=== PATIENT | male | born 1935 | race Caucasian/White ===

== ENCOUNTER 2016-09-20 12:16 | Inpatient (IN) | payer MEDICARE, OTHER ==
[2016-09-19] MEDS: SODIUM CHLORIDE 0.9% 1,000 ML IV SCH (17:16)
[~2016-09-20] VITALS: Ht 172.7 cm; Wt 75.7 kg
[~2016-09-20 12:16] MED LIST: ACET325T14 PO; ALPR0.25 PO; CEFD300C2 PO; DOCU-30 PO; FINA5TAB4 PO; MELA1TAB22 PO; NIFE30TA15 PO
[2016-09-20] MEDS ORDERED: TAMS0.4C2 PO (13:17)
[2016-09-20] MEDS ORDERED: [UNRECOGNIZED DRUG - CODE] PO (13:17)
[2016-09-20] MEDS ORDERED: DIVA250T4 PO (13:17)
[2016-09-20] MEDS ORDERED: MELA3TAB PO (13:17)
[2016-09-20 13:20] LABS: HEMOGLOBIN 14.1 g/dL (13.7-18.0)
[2016-09-20] MEDS ORDERED: SODIUM CHLORIDE FLUSH 10ML SYR IVF ONE (13:30)
[2016-09-20] MEDS ORDERED: SODIUM CHLORIDE 0.9% 1,000ML IVBOLUS ONE ×4 (13:30→19:30)
[2016-09-20 13:34] LABS: ASPARTATE AMINO TRANSFERASE 37 U/L (15-37); BLOOD UREA NITROGEN 42 mg/dL (7-18)
[2016-09-20] MEDS ORDERED: DEXTROSE 50%, 50ML SYRINGE ONE (15:23)
[2016-09-20] MEDS ORDERED: DEXTROSE 50%, 50ML SYRINGE IVPush ONE (15:30)
[2016-09-20] MEDS ORDERED: SODIUM CHLORIDE FLUSH 10ML SYR IVF PRN (16:00)
[2016-09-20] MEDS ORDERED: NOREPINEPHRINE 4 MG in SODIUM CHLORIDE 0.9% 246 ML IV PRN (17:30)
[2016-09-20] MEDS ORDERED: ATROPINE SYRINGE 0.1 MG/ML, 10ML IVPush PRN (17:30)
[2016-09-20] MEDS ORDERED: ONDANSETRON 2MG/ML, 2ML IVP PRN (17:30)
[2016-09-20] MEDS ORDERED: ACETAMINOPHEN 325 MG TABLET PO PRN (17:30)
[2016-09-20] MEDS ORDERED: DOPAMINE/D5W PMX 250 ML ONE (17:31)
[2016-09-20] MEDS: DOPAMINE/D5W PMX 250 ML IV PRN ×2 (17:52→23:59)
[2016-09-20 18:06] LABS: IS PT STATUS REG ER OR PRE ER? YES
[2016-09-20 18:45] VITALS: BP 93/58
[2016-09-20] MEDS ORDERED: SODIUM CHLORIDE 0.9% 1,000 ML IV SCH (19:30)
[2016-09-20] MEDS: SODIUM CHLORIDE 0.9% 1,000 ML IV SCH ×2 (19:30→23:57)
[2016-09-20] MEDS: ENOXAPARIN 40 MG/0.4 ML SQ SCH (21:09)
[2016-09-20 21:30] LABS: DIFF TOTAL CELLS COUNTED 100 CELL DIFF
[2016-09-20 21:35] LABS: VERIFY COUNTS? YES
[2016-09-20 21:36] LABS: ANISOCYTOSIS 1+; POIKILOCYTOSIS 1+
[2016-09-20 21:38] LABS: LARGE PLATELETS 1+; MONOS WITH VACUOLES 1+
[2016-09-20] MEDS: CEFTRIAXONE PMX 1GM/50ML 50 ML IV SCH (22:23)
[2016-09-20 23:57] LABS: IS PT STATUS REG ER OR PRE ER? NO
[2016-09-21] MEDS: SODIUM CHLORIDE 0.9% 1,000 ML IV SCH ×3 (02:10→08:50)
[2016-09-21 04:33] LABS: HEMOGLOBIN 12.4 g/dL (13.7-18.0)
[2016-09-21 04:40] VITALS: BP 170/101
[2016-09-21 04:46] LABS: ASPARTATE AMINO TRANSFERASE 36 U/L (15-37); BLOOD UREA NITROGEN 40 mg/dL (7-18)
[2016-09-21] MEDS ORDERED: ENALAPRILAT 1.25 MG/ML, 2ML IV ONE (05:30)
[2016-09-21 05:51] LABS: IS PT STATUS REG ER OR PRE ER? NO
[2016-09-21] MEDS ORDERED: hydrALAzine 20 MG/ML, 1ML ONE (06:00)
[2016-09-21] MEDS: PANTOPRAZOLE 40 MG IV IVP SCH (07:36)
[2016-09-21] MEDS ORDERED: VALPROATE SODIUM 250 MG/5 ML ORAL SOLN PO/NG SCH (09:24)
[2016-09-21] MEDS ORDERED: VANCOMYCIN PER PHARMACY MC PRN (09:30)
[2016-09-21] MEDS ORDERED: PHARMACOKINETIC MONITORING MC PRN (09:30)
[2016-09-21] MEDS: LEVOTHYROXINE 100 MCG INJ IVPush SCH (10:00)
[2016-09-21] MEDS: CEFTRIAXONE PMX 1GM/50ML 50 ML IV SCH ×2 (10:00→20:36)
[2016-09-21] MEDS: VANCOMYCIN 1,600 MG in SODIUM CHLORIDE 0.9% 250 ML IV SCH (11:17)
[2016-09-21] MEDS: DOPAMINE/D5W PMX 250 ML IV PRN ×2 (12:17→21:01)
[2016-09-21] MEDS: D5%-0.45% NACL 1,000 ML IV SCH (12:25)
[2016-09-21] MEDS: VALPROATE SODIUM 250 MG in DEXTROSE 5% 100 ML IV SCH (20:15)
[2016-09-21] MEDS: ENOXAPARIN 40 MG/0.4 ML SQ SCH (20:36)
[2016-09-22] MEDS: D5%-0.45% NACL 1,000 ML IV SCH ×2 (00:22→14:32)
[2016-09-22 04:00] VITALS: BP 111/80
[2016-09-22 04:01] LABS: HEMOGLOBIN 12.7 g/dL (13.7-18.0)
[2016-09-22 04:12] LABS: BLOOD UREA NITROGEN 35 mg/dL (7-18); IS PT STATUS REG ER OR PRE ER? NO
[2016-09-22 04:17] LABS: ASPARTATE AMINO TRANSFERASE 34 U/L (15-37)
[2016-09-22] MEDS: VALPROATE SODIUM 250 MG in DEXTROSE 5% 100 ML IV SCH ×2 (09:10→21:36)
[2016-09-22] MEDS: PANTOPRAZOLE 40 MG IV IVP SCH (09:10)
[2016-09-22] MEDS: VANCOMYCIN 1,600 MG in SODIUM CHLORIDE 0.9% 250 ML IV SCH (09:11)
[2016-09-22] MEDS: LEVOTHYROXINE 100 MCG INJ IVPush SCH (09:11)
[2016-09-22] MEDS: CEFTRIAXONE PMX 1GM/50ML 50 ML IV SCH ×2 (10:38→22:07)
[2016-09-22] MEDS: hydrALAzine 20 MG/ML, 1ML IV PRN (14:29)
[2016-09-22] MEDS: ENOXAPARIN 40 MG/0.4 ML SQ SCH (21:36)
[2016-09-23] MEDS: D5%-0.45% NACL 1,000 ML IV SCH (04:15)
[2016-09-23 04:52] LABS: BLOOD UREA NITROGEN 27 mg/dL (7-18)
[2016-09-23 04:55] LABS: ASPARTATE AMINO TRANSFERASE 29 U/L (15-37)
[2016-09-23 05:52] VITALS: BP 155/96
[2016-09-23] MEDS: LEVOTHYROXINE 100 MCG INJ IVPush SCH (06:22)
[2016-09-23] MEDS: PANTOPRAZOLE 40 MG IV IVP SCH (07:43)
[2016-09-23] MEDS: hydrALAzine 20 MG/ML, 1ML IV PRN (09:03)
[2016-09-23] MEDS: CEFTRIAXONE PMX 1GM/50ML 50 ML IV SCH ×2 (10:21→22:50)
[2016-09-23] MEDS: VANCOMYCIN 1,600 MG in SODIUM CHLORIDE 0.9% 250 ML IV SCH (10:21)
[2016-09-23] MEDS: VALPROATE SODIUM 250 MG in DEXTROSE 5% 100 ML IV SCH ×2 (10:21→21:35)
[2016-09-23 12:30] VITALS: BP 156/92
[2016-09-23] MEDS: ENOXAPARIN 40 MG/0.4 ML SQ SCH (21:35)
[2016-09-23 22:09] VITALS: BP 159/93
[2016-09-24 02:37] VITALS: BP 131/84
[2016-09-24] MEDS: D5%-0.45% NACL 1,000 ML IV SCH (03:22)
[2016-09-24 05:24] LABS: BLOOD UREA NITROGEN 24 mg/dL (7-18)
[2016-09-24 05:29] LABS: ASPARTATE AMINO TRANSFERASE 18 U/L (15-37)
[2016-09-24 05:32] LABS: IS PT STATUS REG ER OR PRE ER? NO
[2016-09-24 05:42] LABS: HEMOGLOBIN 12.4 g/dL (13.7-18.0)
[2016-09-24] MEDS: LEVOTHYROXINE 100 MCG INJ IVPush SCH (05:48)
[2016-09-24 07:51] VITALS: BP 159/90
[2016-09-24] MEDS: PANTOPRAZOLE 40 MG IV IVP SCH (09:31)
[2016-09-24] MEDS: VALPROATE SODIUM 250 MG in DEXTROSE 5% 100 ML IV SCH ×2 (09:31→21:57)
[2016-09-24] MEDS: CEFTRIAXONE PMX 1GM/50ML 50 ML IV SCH ×2 (10:48→23:30)
[2016-09-24] MEDS: VANCOMYCIN 1,600 MG in SODIUM CHLORIDE 0.9% 250 ML IV SCH (11:28)
[2016-09-24] MEDS: POTASSIUM CHLORIDE 10 MEQ in DEXTROSE 5% 1,000 ML IV SCH (13:41)
[2016-09-24] MEDS ORDERED: BENZOCAINE 20% SPRAY 0.5ML ONE (14:23)
[2016-09-24] MEDS ORDERED: LIDOCAINE GEL 2%, 5ML ONE (14:24)
[2016-09-24 16:12] VITALS: BP 180/98
[2016-09-24] MEDS: hydrALAzine 20 MG/ML, 1ML IV PRN (17:07)
[2016-09-24 20:00] VITALS: BP 125/83
[2016-09-24] MEDS: ENOXAPARIN 40 MG/0.4 ML SQ SCH (21:57)
[2016-09-25 01:58] VITALS: BP 145/92
[2016-09-25 05:28] LABS: BLOOD UREA NITROGEN 24 mg/dL (7-18)
[2016-09-25] MEDS: POTASSIUM CHLORIDE 10 MEQ in DEXTROSE 5% 1,000 ML IV SCH (05:37)
[2016-09-25] MEDS: LEVOTHYROXINE 100 MCG INJ IVPush SCH (05:49)
[2016-09-25 07:09] VITALS: BP 142/102
[2016-09-25] MEDS: PANTOPRAZOLE 40 MG IV IVP SCH (08:31)
[2016-09-25] MEDS: VALPROATE SODIUM 250 MG in DEXTROSE 5% 100 ML IV SCH ×2 (08:31→21:21)
[2016-09-25] MEDS: CEFTRIAXONE PMX 1GM/50ML 50 ML IV SCH (10:00)
[2016-09-25] MEDS: VANCOMYCIN 1,600 MG in SODIUM CHLORIDE 0.9% 250 ML IV SCH (10:22)
[2016-09-25] MEDS ORDERED: PVN PER PHARMACY IV SCH (11:30)
[2016-09-25] MEDS ORDERED: POTASSIUM CHLORIDE 40 MEQ in SODIUM CHLORIDE 0.9% 500 ML IV SCH (13:00)
[2016-09-25 14:00] VITALS: BP 170/95
[2016-09-25] MEDS ORDERED: ACETAMINOPHEN 650 MG SUPP PR PRN (14:30)
[2016-09-25] MEDS: FILTER, DISP 1.2 MICRON FOR TPN/PVN IV PRN (16:58)
[2016-09-25] MEDS: FUROSEMIDE 40 MG/4 ML IV SCH (16:58)
[2016-09-25] MEDS ORDERED: DEXTROSE 70% IV SCH (17:00)
[2016-09-25] MEDS ORDERED: FAT EMULSIONS IV SCH (17:00)
[2016-09-25] MEDS ORDERED: DEXTROSE 50%, 50ML SYRINGE IVPush PRN (17:00)
[2016-09-25] MEDS ORDERED: [UNRECOGNIZED DRUG - OTHER] IV SCH (17:00)
[2016-09-25] MEDS ORDERED: AMINO ACID 10% IV SCH (17:00)
[2016-09-25] MEDS ORDERED: DEXTROSE 10% 500 ML IV PRN (17:00)
[2016-09-25] MEDS ORDERED: TPN PER PHARMACY MC PRN (17:00)
[2016-09-25 22:00] VITALS: BP 161/91
[2016-09-25] MEDS: INSULIN REGULAR LOW DOSE Q6H X 48HRS SQ-INSULIN SCH (23:00)
[2016-09-26] MEDS: CEFTRIAXONE PMX 1GM/50ML 50 ML IV SCH ×3 (00:25→23:33)
[2016-09-26 02:15] VITALS: BP 168/90
[2016-09-26] MEDS: INSULIN REGULAR LOW DOSE Q6H X 48HRS SQ-INSULIN SCH ×4 (05:00→23:00)
[2016-09-26] MEDS: LEVOTHYROXINE 100 MCG INJ IVPush SCH (05:14)
[2016-09-26 06:45] LABS: ASPARTATE AMINO TRANSFERASE 12 U/L (15-37); BLOOD UREA NITROGEN 27 mg/dL (7-18)
[2016-09-26 07:41] VITALS: BP 145/88
[2016-09-26] MEDS: FUROSEMIDE 40 MG/4 ML IV SCH ×2 (07:53→17:08)
[2016-09-26] MEDS: PANTOPRAZOLE 40 MG IV IVP SCH (07:53)
[2016-09-26] MEDS: FONDAPARINUX 2.5 MG/0.5 ML SQ SCH (07:54)
[2016-09-26] MEDS ORDERED: POTASSIUM CHLORIDE 40 MEQ in SODIUM CHLORIDE 0.9% 500 ML IV ONE (09:00)
[2016-09-26] MEDS: VALPROATE SODIUM 250 MG in DEXTROSE 5% 100 ML IV SCH ×2 (09:29→22:21)
[2016-09-26] MEDS: VANCOMYCIN 1,600 MG in SODIUM CHLORIDE 0.9% 250 ML IV SCH (10:05)
[2016-09-26 14:34] VITALS: BP 136/79
[2016-09-26] MEDS ORDERED: AMINO ACID 10% IV SCH (17:00)
[2016-09-26] MEDS ORDERED: [UNRECOGNIZED DRUG - OTHER] IV SCH (17:00)
[2016-09-26] MEDS ORDERED: DEXTROSE 70% IV SCH (17:00)
[2016-09-26] MEDS ORDERED: FAT EMULSIONS IV SCH (17:00)
[2016-09-26] MEDS: FILTER, DISP 1.2 MICRON FOR TPN/PVN IV PRN (17:08)
[2016-09-26 19:38] VITALS: BP 118/67
[2016-09-27 04:00] VITALS: BP 120/98
[2016-09-27] MEDS: LEVOTHYROXINE 100 MCG INJ IVPush SCH (04:29)
[2016-09-27] MEDS: INSULIN REGULAR LOW DOSE Q6H X 48HRS SQ-INSULIN SCH ×3 (05:00→17:00)
[2016-09-27 05:30] LABS: BLOOD UREA NITROGEN 30 mg/dL (7-18)
[2016-09-27 05:39] LABS: HEMOGLOBIN 11.6 g/dL (13.7-18.0)
[2016-09-27 07:52] VITALS: BP 150/84
[2016-09-27] MEDS: FUROSEMIDE 40 MG/4 ML IV SCH ×2 (08:12→17:44)
[2016-09-27] MEDS: PANTOPRAZOLE 40 MG IV IVP SCH (08:12)
[2016-09-27] MEDS: FONDAPARINUX 2.5 MG/0.5 ML SQ SCH (08:13)
[2016-09-27] MEDS: VALPROATE SODIUM 250 MG in DEXTROSE 5% 100 ML IV SCH ×2 (09:27→21:06)
[2016-09-27] MEDS: CEFTRIAXONE PMX 1GM/50ML 50 ML IV SCH ×2 (10:31→23:05)
[2016-09-27] MEDS: VANCOMYCIN 1,600 MG in SODIUM CHLORIDE 0.9% 250 ML IV SCH (11:50)
[2016-09-27 14:00] VITALS: BP 154/92
[2016-09-27] MEDS ORDERED: AMINO ACID 10% IV SCH (17:00)
[2016-09-27] MEDS ORDERED: DEXTROSE 70% IV SCH (17:00)
[2016-09-27] MEDS ORDERED: FAT EMULSIONS IV SCH (17:00)
[2016-09-27] MEDS ORDERED: [UNRECOGNIZED DRUG - OTHER] IV SCH (17:00)
[2016-09-27] MEDS: FILTER, DISP 1.2 MICRON FOR TPN/PVN IV PRN (17:39)
[2016-09-27 19:35] VITALS: BP 110/73
[2016-09-28 03:25] VITALS: BP 137/79
[2016-09-28] MEDS: LEVOTHYROXINE 100 MCG INJ IVPush SCH (06:00)
[2016-09-28 06:31] LABS: HEMOGLOBIN 12.1 g/dL (13.7-18.0)
[2016-09-28 06:34] LABS: BLOOD UREA NITROGEN 32 mg/dL (7-18)
[2016-09-28 07:41] VITALS: BP 148/87
[2016-09-28] MEDS: INSULIN REGULAR LOW DOSE QDAY SQ-INSULIN SCH (08:00)
[2016-09-28] MEDS: FUROSEMIDE 40 MG/4 ML IV SCH ×2 (08:51→17:19)
[2016-09-28] MEDS: VALPROATE SODIUM 250 MG in DEXTROSE 5% 100 ML IV SCH ×2 (08:51→20:20)
[2016-09-28] MEDS: FONDAPARINUX 2.5 MG/0.5 ML SQ SCH (08:51)
[2016-09-28] MEDS: PANTOPRAZOLE 40 MG IV IVP SCH (08:51)
[2016-09-28] MEDS: CEFTRIAXONE PMX 1GM/50ML 50 ML IV SCH ×2 (10:27→23:46)
[2016-09-28] MEDS: VANCOMYCIN 1,600 MG in SODIUM CHLORIDE 0.9% 250 ML IV SCH (11:43)
[2016-09-28 13:23] VITALS: BP 131/79
[2016-09-28] MEDS ORDERED: DEXTROSE 70% IV SCH (17:00)
[2016-09-28] MEDS ORDERED: [UNRECOGNIZED DRUG - OTHER] IV SCH (17:00)
[2016-09-28] MEDS ORDERED: FAT EMULSIONS IV SCH (17:00)
[2016-09-28] MEDS ORDERED: AMINO ACID 10% IV SCH (17:00)
[2016-09-28] MEDS: FILTER, DISP 1.2 MICRON FOR TPN/PVN IV PRN (17:20)
[2016-09-28 20:19] VITALS: BP 127/78
[2016-09-29 03:32] VITALS: BP 136/79
[2016-09-29] MEDS: LEVOTHYROXINE 100 MCG INJ IVPush SCH (06:00)
[2016-09-29 06:47] LABS: BLOOD UREA NITROGEN 31 mg/dL (7-18)
[2016-09-29] MEDS: INSULIN REGULAR LOW DOSE QDAY SQ-INSULIN SCH (08:00)
[2016-09-29 08:22] LABS: HEMOGLOBIN 12.4 g/dL (13.7-18.0)
[2016-09-29 08:51] VITALS: BP 130/78
[2016-09-29] MEDS: FONDAPARINUX 2.5 MG/0.5 ML SQ SCH (09:02)
[2016-09-29] MEDS: PANTOPRAZOLE 40 MG IV IVP SCH (09:02)
[2016-09-29] MEDS: FUROSEMIDE 40 MG/4 ML IV SCH ×2 (09:02→17:00)
[2016-09-29] MEDS: CEFTRIAXONE PMX 1GM/50ML 50 ML IV SCH (10:05)
[2016-09-29] MEDS: VALPROATE SODIUM 250 MG in DEXTROSE 5% 100 ML IV SCH ×2 (10:05→23:43)
[2016-09-29] MEDS: VANCOMYCIN 1,600 MG in SODIUM CHLORIDE 0.9% 250 ML IV SCH (11:30)
[2016-09-29 12:41] VITALS: BP 130/78
[2016-09-29] MEDS: BISACODYL 10 MG SUPP PR SCH ×2 (13:37→21:00)
[2016-09-29] MEDS ORDERED: [UNRECOGNIZED DRUG - OTHER] IV SCH (17:00)
[2016-09-29] MEDS ORDERED: FAT EMULSIONS IV SCH (17:00)
[2016-09-29] MEDS ORDERED: AMINO ACID 10% IV SCH (17:00)
[2016-09-29] MEDS ORDERED: DEXTROSE 70% IV SCH (17:00)
[2016-09-29 20:28] VITALS: BP 119/73
[2016-09-30] MEDS: CEFTRIAXONE PMX 1GM/50ML 50 ML IV SCH ×3 (00:30→21:55)
[2016-09-30 02:02] VITALS: BP 128/64
[2016-09-30 05:20] LABS: HEMOGLOBIN 13.3 g/dL (13.7-18.0)
[2016-09-30 05:20] LABS: BLOOD UREA NITROGEN 30 mg/dL (7-18)
[2016-09-30] MEDS: LEVOTHYROXINE 100 MCG INJ IVPush SCH (06:00)
[2016-09-30 06:47] VITALS: BP 116/75
[2016-09-30 07:06] LABS: SRA, LOW DOSE HEPARIN 1 % (0-20)
[2016-09-30] MEDS: INSULIN REGULAR LOW DOSE QDAY SQ-INSULIN SCH (08:00)
[2016-09-30] MEDS: BISACODYL 10 MG SUPP PR SCH ×2 (09:00→21:00)
[2016-09-30] MEDS: FUROSEMIDE 40 MG/4 ML IV SCH (09:17)
[2016-09-30] MEDS: FONDAPARINUX 2.5 MG/0.5 ML SQ SCH (09:17)
[2016-09-30] MEDS: PANTOPRAZOLE 40 MG IV IVP SCH (09:17)
[2016-09-30] MEDS: VALPROATE SODIUM 250 MG in DEXTROSE 5% 100 ML IV SCH ×2 (09:18→20:40)
[2016-09-30] MEDS: VANCOMYCIN 1,600 MG in SODIUM CHLORIDE 0.9% 250 ML IV SCH ×2 (11:45→23:02)
[2016-09-30 14:02] VITALS: BP 116/77
[2016-09-30] MEDS ORDERED: AMINO ACID 10% IV SCH (17:00)
[2016-09-30] MEDS ORDERED: FAT EMULSIONS IV SCH (17:00)
[2016-09-30] MEDS ORDERED: [UNRECOGNIZED DRUG - OTHER] IV SCH (17:00)
[2016-09-30] MEDS ORDERED: DEXTROSE 70% IV SCH (17:00)
[2016-09-30 20:15] VITALS: BP 110/68
[2016-09-30] MEDS: FILTER, DISP 1.2 MICRON FOR TPN/PVN IV PRN (23:01)
[2016-10-01 02:00] VITALS: BP 155/86
[2016-10-01 05:32] LABS: HEMOGLOBIN 12.6 g/dL (13.7-18.0)
[2016-10-01 05:41] LABS: BLOOD UREA NITROGEN 31 mg/dL (7-18)
[2016-10-01] MEDS: LEVOTHYROXINE 100 MCG INJ IVPush SCH (05:53)
[2016-10-01 06:30] VITALS: BP 115/71
[2016-10-01] MEDS: INSULIN REGULAR LOW DOSE QDAY SQ-INSULIN SCH (08:00)
[2016-10-01] MEDS: PANTOPRAZOLE 40 MG IV IVP SCH (08:29)
[2016-10-01] MEDS: FUROSEMIDE 40 MG/4 ML IV SCH (08:30)
[2016-10-01] MEDS: BISACODYL 10 MG SUPP PR SCH ×2 (09:00→21:51)
[2016-10-01] MEDS: FONDAPARINUX 2.5 MG/0.5 ML SQ SCH (09:00)
[2016-10-01] MEDS: VALPROATE SODIUM 250 MG in DEXTROSE 5% 100 ML IV SCH ×2 (10:51→21:41)
[2016-10-01 12:52] VITALS: BP 114/75
[2016-10-01] MEDS: CEFTRIAXONE PMX 1GM/50ML 50 ML IV SCH (13:07)
[2016-10-01] MEDS ORDERED: TPN PER PHARMACY MC PRN (14:30)
[2016-10-01] MEDS ORDERED: AMINO ACID 10% IV SCH (17:00)
[2016-10-01] MEDS ORDERED: DEXTROSE 70% IV SCH (17:00)
[2016-10-01] MEDS ORDERED: FAT EMULSIONS IV SCH (17:00)
[2016-10-01] MEDS ORDERED: [UNRECOGNIZED DRUG - OTHER] IV SCH (17:00)
[2016-10-01] MEDS: FILTER, DISP 1.2 MICRON FOR TPN/PVN IV PRN (18:22)
[2016-10-01 20:00] VITALS: BP 102/65
[2016-10-02] MEDS: CEFTRIAXONE PMX 1GM/50ML 50 ML IV SCH ×2 (00:23→13:31)
[2016-10-02 01:45] VITALS: BP 110/74
[2016-10-02] MEDS: LEVOTHYROXINE 100 MCG INJ IVPush SCH (05:05)
[2016-10-02 06:19] LABS: BLOOD UREA NITROGEN 30 mg/dL (7-18)
[2016-10-02 08:00] VITALS: BP 122/75
[2016-10-02] MEDS: INSULIN REGULAR LOW DOSE QDAY SQ-INSULIN SCH (08:00)
[2016-10-02] MEDS: FUROSEMIDE 40 MG/4 ML IV SCH (08:04)
[2016-10-02] MEDS: PANTOPRAZOLE 40 MG IV IVP SCH (08:04)
[2016-10-02] MEDS: FONDAPARINUX 2.5 MG/0.5 ML SQ SCH (08:05)
[2016-10-02] MEDS: BISACODYL 10 MG SUPP PR SCH ×2 (08:07→21:31)
[2016-10-02] MEDS: VALPROATE SODIUM 250 MG in DEXTROSE 5% 100 ML IV SCH ×2 (10:14→21:23)
[2016-10-02] MEDS: VANCOMYCIN 1,600 MG in SODIUM CHLORIDE 0.9% 250 ML IV SCH (11:30)
[2016-10-02 13:22] VITALS: BP 122/79
[2016-10-02] MEDS ORDERED: FURO40TA6 PO (15:50)
[2016-10-02] MEDS ORDERED: AMOX250S23 PO (15:50)
[2016-10-02] MEDS ORDERED: LEVO25TA2 PO (15:50)
[2016-10-02] MEDS ORDERED: AMINO ACID 10% IV SCH (17:00)
[2016-10-02] MEDS ORDERED: [UNRECOGNIZED DRUG - OTHER] IV SCH (17:00)
[2016-10-02] MEDS ORDERED: DEXTROSE 70% IV SCH (17:00)
[2016-10-02] MEDS ORDERED: FAT EMULSIONS IV SCH (17:00)
[2016-10-02] MEDS: FILTER, DISP 1.2 MICRON FOR TPN/PVN IV PRN (18:24)
[2016-10-02 20:01] VITALS: BP 111/79
[2016-10-03] MEDS: CEFTRIAXONE PMX 1GM/50ML 50 ML IV SCH ×2 (01:07→13:34)
[2016-10-03 02:02] VITALS: BP 118/76
[2016-10-03] MEDS: LEVOTHYROXINE 100 MCG INJ IVPush SCH (06:35)
[2016-10-03 07:23] LABS: BLOOD UREA NITROGEN 28 mg/dL (7-18)
[2016-10-03 07:25] VITALS: BP 127/81
[2016-10-03] MEDS: INSULIN REGULAR LOW DOSE QDAY SQ-INSULIN SCH (08:27)
[2016-10-03] MEDS: FUROSEMIDE 40 MG/4 ML IV SCH (08:28)
[2016-10-03] MEDS: PANTOPRAZOLE 40 MG IV IVP SCH (08:28)
[2016-10-03] MEDS: FONDAPARINUX 2.5 MG/0.5 ML SQ SCH (08:28)
[2016-10-03] MEDS: BISACODYL 10 MG SUPP PR SCH (08:29)
[2016-10-03] MEDS: VALPROATE SODIUM 250 MG in DEXTROSE 5% 100 ML IV SCH (09:05)
[2016-10-03 15:40] VITALS: BP 123/79
[2016-10-03] MEDS ORDERED: DEXTROSE 70% IV SCH (17:00)
[2016-10-03] MEDS ORDERED: AMINO ACID 10% IV SCH (17:00)
[2016-10-03] MEDS ORDERED: FAT EMULSIONS IV SCH (17:00)
[2016-10-03] MEDS ORDERED: [UNRECOGNIZED DRUG - OTHER] IV SCH (17:00)
[2016-10-05] MEDS ORDERED: AMOX250S20 PO (17:41)
[2016-10-05] MEDS ORDERED: FINA5TAB PO (17:42)
== END 2016-10-03 17:52 | DRG 871 ==
LOC: ED 13:34 → EDIP 15:48 → CCU 18:14 → 4EST 09-23 12:11
PROVIDERS: ADMIT Hospitalist; ATTEND Internal Medicine
PROC: 0T9B70Z Drainage of Bladder with Drainage Device, Via Natural or Artificial Opening (ICD-10-PCS; principal; 2016-09-20)
PROC: 05HM33Z Insertion of Infusion Device into Right Internal Jugular Vein, Percutaneous Approach (ICD-10-PCS; 2016-09-20)
PROC: B543ZZA Ultrasonography of Right Jugular Veins, Guidance (ICD-10-PCS; 2016-09-20)
PROC: 02HV33Z Insertion of Infusion Device into Superior Vena Cava, Percutaneous Approach (ICD-10-PCS; 2016-10-01)
PROC: B548ZZA Ultrasonography of Superior Vena Cava, Guidance (ICD-10-PCS; 2016-10-01)
DX: A41.9 Sepsis, unspecified organism (principal); G93.41 Metabolic encephalopathy; N39.0 Urinary tract infection, site not specified; D75.89 Other specified diseases of blood and blood-forming organs; E03.9 Hypothyroidism, unspecified; E16.2 Hypoglycemia, unspecified; I10 Essential (primary) hypertension; M19.90 Unspecified osteoarthritis, unspecified site; R56.9 Unspecified convulsions; Z96.651 Presence of right artificial knee joint; Z66 Do not resuscitate; G30.9 Alzheimer's disease, unspecified; R13.10 Dysphagia, unspecified; F02.80 Dementia in other diseases classified elsewhere, unspecified severity, without behavioral disturbance, psychotic disturbance, mood disturbance, and anxiety; K59.00 Constipation, unspecified; E86.0 Dehydration; Z90.49 Acquired absence of other specified parts of digestive tract; Z87.891 Personal history of nicotine dependence; Z88.5 Allergy status to narcotic agent; Z82.3 Family history of stroke; I07.1 Rheumatic tricuspid insufficiency; R00.1 Bradycardia, unspecified; N39.498 Other specified urinary incontinence
CPT/HCPCS: 36415; 36569; 51702; 70450; 71010; 74000; 76937; 77001; 80048; 80053; 80164; 80202; 81001; 82140; 82533; 82542; 82607; 82746; 82962; 83605; 83735; 84100; 84134; 84145; 84439; 84443; 84478; 84481; 84484; 85025; 85610; 85730; 87040; 87077; 87081; 87086; 87186; 93005; 93306; 95819; 96374; J0610; J0696; J1265; J1650; J1815; J1940; J3370; J3475; J3480; J7070; C1751; C9113; J0360; J1652; J1720; J3420; J7030; J7040; J7050